=== PATIENT | female | born 1985 | race Hispanic/Latino ===

== ENCOUNTER 2018-10-01 12:34 | Emergency (ER) | payer OTHER ==
[~2018-10-01] VITALS: Ht 167.6 cm; Wt 68.5 kg
[~2018-10-01 12:34] MED LIST: PRENATAL1 EACH MT
--- OUTSIDE RECORDS SUMMARY | 2018-10-01 12:37 | XMS REPORT | CCD ---
Author Author Auto Generated Organization [facility] Address Unknown Phone Unavailable Care Team Providers Care Industrial Green Systems Designer Name Role Phone Juan Flowers CP Allergies, Adverse Reactions, Alerts Substance Reaction Status NKDA Active Medications Medication Instructions Start Date End Date Status Sodium Chloride 0.9% 1,000 mL, Rate: 1,000 ml/hr, Infuse 10/27/2012 10/27/2012 Completed (Bolus) IV 1000 mL over: 1 hr, Route: IV, Dosing Weight 68.182 kg, Total Volume: 1,000, Priority: STAT, Start date: 10/27/12 1:12:00, Duration: 1 doses or times, Stop date: 10/27/12 2:11:00, Bolus Dose Bolus Dose Vital Signs Most recent to oldest [Reference Range]: 1 Height 167.64 cm (10/26/2012 23:25:00) Weight 68.182 kg (10/26/2012 23:25:00) Results URINALYSIS Most recent to oldest [Reference Range]: 1 UA Turbidity [Clear] Clear (10/26/2012 23:30:00) UA Color Ltyellow *NA* (10/26/2012 23:30:00) UA pH [5.0-8.0] 7.0 (10/26/2012 23:30:00) UA Spec Grav [<=1.030] 1.020 (10/26/2012 23:30:00) UA Glucose [Negative mg/dL] Negative mg/dL *NA* (10/26/2012 23:30:00) UA Blood [Negative] Negative (10/26/2012 23:30:00) UA Ketones [Negative mg/dL] Negative mg/dL *NA* (10/26/2012 23:30:00) UA Protein [Negative mg/dL] Negative mg/dL (10/26/2012 23:30:00) UA Urobilinogen [0.1-1.0 mg/dL] <=1.0 mg/dL *NA* (10/26/2012:30:00) UA Bili [Negative] Negative *NA* (10/26/2012:30:00) UA Leuk Est [Negative] Negative (10/26/2012:30:00) UA Nitrite [Negative] Negative (10/26/2012:30:00) UA WBC [0-5 /HPF] 1 /HPF (10/26/2012:30:00) UA RBC [0-2 /HPF] <1 /HPF (10/26/2012:30:00) UA Bacteria [None Seen /HPF] Occasional /HPF *NA* (10/26/2012:30:00) UA Sq Epi [Few /LPF] Occasional /LPF *NA* (10/26/2012:30:00) CHEMISTRY Most recent to oldest [Reference Range]: 1 Sodium Lvl [135-145 mEq/L] 139 mEq/L (10/27/2012:30:00) Potassium Lvl [3.5-5.1 mEq/L] 3.4 mEq/L *LOW* (10/27/2012:30:00) Chloride Lvl [95-109 mEq/L] 104 mEq/L (10/27/2012:30:00) CO2 [24-32 mEq/L] 29 mEq/L (10/27/2012:30:00) AGAP [10.0-20.0 mEq/L] 9.4 mEq/L *LOW* (10/27/2012:30:00) Creatinine Lvl [0.5-1.4 mg/dL] 0.7 mg/dL (10/27/2012:30:00) eGFR 120 mL/min/1.73m2 1 *NA* (10/27/2012:30:00) BUN [7-22 mg/dL] 11 mg/dL (10/27/2012:30:00) B/C Ratio [6-25] 16 (10/27/2012:30:00) Glucose Lvl [70-99 mg/dL] 108 mg/dL 2 *HI* (10/27/2012:30:00) Total Protein [6.4-8.4 g/dL] 8.5 g/dL *HI* (10/27/201230) Albumin Lvl [3.5-5.0 g/dL] 4.5 g/dL (10/27/2012) Globulin [2.0-4.0 g/dL] 4.0 g/dL (10/27/2012) A/G Ratio [0.7-1.6] 1.1 (10/27/2012) Calcium Lvl [8.5-10.5 mg/dL] 9.2 mg/dL (10/27/2012) Magnesium Lvl [1.8-2.4 mg/dL] 2.1 mg/dL (10/27/2012) ALT [0-65 unit/L] 53 unit/L (10/27/2012) AST [0-37 unit/L] 33 unit/L (10/27/2012) Alk Phos [39-136 unit/L] 104 unit/L (10/27/2012:) Bili Total [0.2-1.3 mg/dL] 0.3 mg/dL (10/27/2012) Total CK [12-191 unit/L] 53 unit/L (10/27/2012) CK MB [0.5-3.6 ng/mL] <0.5 ng/mL (10/27/2012) CK MB Index [0.0-2.5] <0.9 (10/27/2012:) Troponin-I [0.00-0.40 ng/mL] <0.02 ng/mL (10/27/2012:) U Preg [Negative] Negative (10/26/2012:30:00) 1Result Comment: The eGFR is calculated using the CKD-EPI formula. In most young, healthy individuals the eGFR will be >90 mL/min/1.73m2. The eGFR declines with age. An eGFR of 60-89 may be normal in some populations, particularly the elderly, for whom the CKD-EPI formula has not been extensively validated. Use of the eGFR is not recommended in the following populations: Individuals with unstable creatinine concentrations, including patients and those with serious co-morbid conditions. Patients with extremes in muscle mass or diet. The data above are obtained from the National Kidney Disease Education Program ( NKDEP) which additionally recommends that when the eGFR is used in patients with extremes of body mass index for purposes of drug dosing, the eGFR should be mul tiplied by the estimated BMI. 2Interpretive Data: Adult reference range values reflect the clinical guidelines of the [place] [employer]. HEMATOLOGY Most recent to oldest [Reference Range]: 1 WBC [3.7-10.4 K/CMM] 7.5 K/CMM (10/27/201230:00) RBC [4.20-5.40 M/CMM] 4.30 M/CMM (10/27/201230:00) Hgb [12.0-16.0 g/dL] 13.1 g/dL (10/27/201230:00) Hct [36.0-48.0 %] 39.5 % (10/27/2012:30:00) MCV [81.0-99.0 fL] 91.9 fL (10/27/201200) MCH [27.0-31.0 pg] 30.4 pg (10/27/201230:00) MCHC [32.0-36.0 g/dL] 33.1 g/dL (10/27/201230:00) RDW [11.5-14.5 %] 14.1 % (10/27/201230:00) Platelet [133-450 K/CMM] 219 K/CMM (10/27/201230:00) MPV [7.4-10.4 fL] 10.5 fL *HI* (10/27/20123000) Segs [45.0-75.0 %] 65.2 % (10/27/2012:30:00) Lymphocytes [20.0-40.0 %] 24.4 % (10/27/201230:00) Monocytes [2.0-12.0 %] 5.9 % (10/27/2012 01:30:00) Eosinophils [0.0-4.0 %] 4.0 % (10/27/2012:30:00) Basophils [0.0-1.0 %] 0.5 % (10/27/2012 01:30:00) Segs-Bands # [1.5-8.1 K/CMM] 4.9 K/CMM (10/27/2012 01:30:00) Lymphocytes # [1.0-5.5 K/CMM] 1.8 K/CMM (10/27/2012 01:30:00) Monocytes # [0.0-0.8 K/CMM] 0.4 K/CMM (10/27/2012 01:30:00) Eosinophils # [0.0-0.5 K/CMM] 0.3 K/CMM (10/27/2012 01:30:00) Basophils # [0.0-0.2 K/CMM] 0.0 K/CMM (10/27/2012 01:30:00)
--- OUTSIDE RECORDS SUMMARY | 2018-10-01 12:37 | XMS REPORT | CCD ---
Author Author Auto Generated Organization [facility] [place] Address Unknown Phone Unavailable Care Team Providers Care Financial Foundations Representative Name Role Phone Janice Schreiber CP Allergies, Adverse Reactions, Alerts Substance Reaction Status NKDA Active
--- OUTSIDE RECORDS SUMMARY | 2018-10-01 12:37 | XMS REPORT | Continuity of Care Document ---
Author Author [facility] Address Unknown Phone Unavailable Problems Problem Status Onset Date Classification Date Reported Comments Source 786.2 - COUGH Active 10/30/2012 [facility] FATIQUE AND WEAKNESS Active 10/26/2012 [facility] SHARP PAIN IN HEAD Active 07/20/2012 [facility] Medications Medication Details Route Status Patient Instructions Ordering Provider Order Date Source Sodium Chloride 0.9% (Bolus) IV 1000 mL 1,000 mL, Rate: 1,000 ml/hr, Infuse over: 1 hr, Route: IV, Dosing Weight 68.182 kg, Total Volume: 1,000, Priority: STAT, Start date: 10/27/12 1:12:00, Duration: 1 doses or times, Stop date: 10/27/12 2:11:00, Bolus DoseBolus Dose IV No Longer Active Popat 10/27/2012 [facility] Ativan 0.5 mg oral tablet 0.5 mg, 1 tab, PO, TID, PRN, 20 tab, Anxiety, Substitution Allowed PO Active [place] 07/21/2012 [facility] Allergies, Adverse Reactions, Alerts Substance Category Reaction Severity Reaction type Status Date Reported Comments Source Immunizations Immunization Date Given Site Status Last Updated Comments Source Results Order Name Results Value Reference Range Date Interpretation Comments Source Breast US Breast US - BREAST US/L ULTRASOUND OF LEFT BREAST: 09/21/2013 CLINICAL: Mastodynia. No prior exams were available for comparison. Color flow and real-time ultrasound of the left breast were performed on the areas of interest. Grewal scale images of the real-time examination were reviewed. No sonographic evidence of abnormality in the lateral left breast, where the patient is reporting pain. IMPRESSION: NEGATIVE There is no sonographic evidence of malignancy. Follow-up with ACR/ACS guidelines. SUMMARY: No sonographic correlate to the area of concern in the left breast. Therefore, management of this symptom should be based on findings at clinical examination. Additional imaging should be considered if symptoms recur or worsen. I discussed these findings with the patient in person at the time of examination. Dipika Arce lpp/:09/21/2013 10:51:54 Nitroglycerin Neutralizer: Judi Berman [facility] This exam was dictated and interpreted by [id number] for Jelly. letter sent: Normal exam Ultrasound BI-RADS: 1 Negative 09/21/2013 - - Read by: Dipika Arce Dictated Date/time: 09/21/13 10:51 Electronically Signed by: Dipika Arce MD 09/21/13 10:51 FINAL REPORT JOSIAH Li Chest 2 views Chest 2 views REASON FOR EXAMINATION: Cough. COMPARISON: None. FINDINGS: Two views of the chest are submitted for interpretation. The cardiomediastinal silhouette is normal. The lungs are clear. The visible osseous structures are normal. IMPRESSION: 1. NO ACUTE CARDIOPULMONARY ABNORMALITIES. 10/30/2012 - - Read by: Hermes Mccullough Dictated Date/time: 10/30/12 12:27 Electronically Signed by: Hermes Mccullough MD 10/30/12 12:27 FINAL REPORT JOSIAH Li CHEMISTRY CK MB Index null 0.0 - 2.5 10/27/2012 Normal [facility] CHEMISTRY Troponin-I null 0.00 - 0.40 10/27/2012 Normal [facility] CHEMISTRY Magnesium Lvl 2.1 mg/dL 1.8 - 2.4 10/27/2012 Normal [facility] CHEMISTRY Sodium Lvl 139 meq/L 135 - 145 10/27/2012 Normal [facility] CHEMISTRY Chloride Lvl 104 meq/L 95 - 109 10/27/2012 Normal [facility] CHEMISTRY Potassium Lvl 3.4 meq/L 3.5 - 5.1 10/27/2012 LOW [facility] CHEMISTRY eGFR 120 mL/min/1.73m2 10/27/2012 NA 1Result Comment: The eGFR is calculated using [...] from the National Kidney Disease Education Program (NKDEP) which additionally recommends that when the eGFR is used in patients with extremes of body mass index for purposes of drug dosing, the eGFR should be multiplied by the estimated BMI. [facility] CHEMISTRY Bili Total 0.3 mg/dL 0.2 - 1.3 10/27/2012 Normal [facility] CHEMISTRY AST 33 unit/L 0 - 37 10/27/2012 Normal [facility] CHEMISTRY Alk Phos 104 unit/L 39 - 136 10/27/2012 Normal [facility] CHEMISTRY ALT 53 unit/L 0 - 65 10/27/2012 Normal [facility] CHEMISTRY A/G Ratio 1.1 0.7 - 1.6 10/27/2012 Normal [facility] CHEMISTRY AGAP 9.4 meq/L 10.0 - 20.0 10/27/2012 LOW [facility] CHEMISTRY Calcium Lvl 9.2 mg/dL 8.5 - 10.5 10/27/2012 Normal [facility] CHEMISTRY CO2 29 meq/L 24 - 32 10/27/2012 Normal [facility] CHEMISTRY Creatinine Lvl 0.7 mg/dL 0.5 - 1.4 10/27/2012 Normal [facility] CHEMISTRY BUN 11 mg/dL 7 - 22 10/27/2012 Normal [facility] CHEMISTRY Glucose Lvl 108 mg/dL 70 - 99 10/27/2012 HI 2Interpretive Data: Adult reference range values reflect the clinical guidelines of the [place] Diabetes [employer]. [facility] CHEMISTRY Globulin 4.0 g/dL 2.0 - 4.0 10/27/2012 Normal [facility] CHEMISTRY Albumin Lvl 4.5 g/dL 3.5 - 5.0 10/27/2012 Normal [facility] CHEMISTRY B/C Ratio 16 6 - 25 10/27/2012 Normal [facility] CHEMISTRY Total Protein 8.5 g/dL 6.4 - 8.4 10/27/2012 HI [facility] CHEMISTRY CK MB null 0.5 - 3.6 10/27/2012 Normal [facility] CHEMISTRY Total CK 53 unit/L 12 - 191 10/27/2012 Normal [facility] HEMATOLOGY Segs 65.2 % 45.0 - 75.0 10/27/2012 Normal [facility] HEMATOLOGY Eosinophils 4.0 % 0.0 - 4.0 10/27/2012 Normal [facility] HEMATOLOGY Basophils 0.5 % 0.0 - 1.0 10/27/2012 Normal [facility] HEMATOLOGY Lymphocytes 24.4 % 20.0 - 40.0 10/27/2012 Normal [facility] HEMATOLOGY Monocytes 5.9 % 2.0 - 12.0 10/27/2012 Normal [facility] HEMATOLOGY Lymphocytes # 1.8 K/CMM 1.0 - 5.5 10/27/2012 Normal [facility] HEMATOLOGY Segs-Bands # 4.9 K/CMM 1.5 - 8.1 10/27/2012 Normal [facility] HEMATOLOGY Monocytes # 0.4 K/CMM 0.0 - 0.8 10/27/2012 Normal [facility] HEMATOLOGY Eosinophils # 0.3 K/CMM 0.0 - 0.5 10/27/2012 Normal [facility] HEMATOLOGY Basophils # 0.0 K/CMM 0.0 - 0.2 10/27/2012 Normal [facility] HEMATOLOGY MPV 10.5 fL 7.4 - 10.4 10/27/2012 HI [facility] HEMATOLOGY Hct 39.5 % 36.0 - 48.0 10/27/2012 Normal [facility] HEMATOLOGY MCV 91.9 fL 81.0 - 99.0 10/27/2012 Normal [facility] HEMATOLOGY MCH 30.4 pg 27.0 - 31.0 10/27/2012 Normal [facility] HEMATOLOGY MCHC 33.1 g/dL 32.0 - 36.0 10/27/2012 Normal [facility] HEMATOLOGY Platelet 219 K/CMM 133 - 450 10/27/2012 Normal [facility] HEMATOLOGY RDW 14.1 % 11.5 - 14.5 10/27/2012 Normal [facility] HEMATOLOGY WBC 7.5 K/CMM 3.7 - 10.4 10/27/2012 Normal [facility] HEMATOLOGY RBC 4.30 M/CMM 4.20 - 5.40 10/27/2012 Normal [facility] HEMATOLOGY Hgb 13.1 g/dL 12.0 - 16.0 10/27/2012 Normal [facility] CHEMISTRY U Preg Negative (10/26/2012 23:30:00) Negative 10/27/2012 Normal [facility] URINALYSIS UA Bili Negative *NA* (10/26/2012 23:30:00) Negative 10/27/2012 [facility] URINALYSIS UA Ketones Negative mg/dL *NA* (10/26/2012 23:30:00) Negative 10/27/2012 [facility] URINALYSIS UA Nitrite Negative (10/26/2012 23:30:00) Negative 10/27/2012 Normal [facility] URINALYSIS UA Blood Negative (10/26/2012 23:30:00) Negative 10/27/2012 Normal [facility] URINALYSIS UA WBC 1 /HPF 0 - 5 10/27/2012 Normal [facility] URINALYSIS UA RBC null 0 - 2 10/27/2012 Normal [facility] URINALYSIS UA Sq Epi Occasional /LPF *NA* (10/26/2012 23:30:00) Few 10/27/2012 NA [facility] URINALYSIS UA Leuk Est Negative (10/26/2012 23:30:00) Negative 10/27/2012 Normal [facility] URINALYSIS UA Bacteria Occasional /HPF *NA* (10/26/2012 23:30:00) None Seen 10/27/2012 NA [facility] URINALYSIS UA Color Ltyellow 10/27/2012 NA [facility] URINALYSIS UA Urobilinogen <=1.0 mg/dL
*NA*
(10/26/2012 23:30:00) <sup> </sup> 0.1 - 1.0 10/27/2012 NA [facility] URINALYSIS UA Spec Grav 1.020 <=1.030 10/27/2012 Normal [facility] URINALYSIS UA pH 7.0 5.0 - 8.0 10/27/2012 Normal [facility] URINALYSIS UA Turbidity Clear (10/26/2012 23:30:00) Clear 10/27/2012 Normal [facility] URINALYSIS UA Glucose Negative mg/dL *NA* (10/26/2012 23:30:00) Negative 10/27/2012 NA [facility] URINALYSIS UA Protein Negative mg/dL (10/26/2012 23:30:00) Negative 10/27/2012 Normal [facility] Vital Signs Vital Sign Value Date Comments Source Weight 68.182 10/27/2012 [facility] Height 167.64 cm 10/27/2012 [facility] Height 167.64 cm 07/21/2012 [facility] Weight 68.182 07/21/2012 [facility] Encounters Location Location Details Encounter Type Encounter Number Reason For Visit Attending Provider ADM Date DC Date Status Source [facility] Emergency [id number] LIN FREDERIC 07/20/2012 07/21/2012 Active [facility] [id number] FATIQUE AND WEAKNESS MANFRED FIOREAT 10/26/2012 10/27/2012 Active [facility] [id number] 786.2 - COUGH REINA JENNIFERVINCENZOCONCHITA 10/30/2012 Active JOSIAH Talaveraa [facility] [place] [facility] [id number] Gurvinder Cote 09/21/2013 09/22/2013 JOS[facility] Li Procedures Procedure Code Date Perfomer Comments Source
--- OUTSIDE RECORDS SUMMARY | 2018-10-01 12:37 | XMS REPORT | CCD ---
Author Author Auto Generated Organization [facility] Address Unknown Phone Unavailable Care Team Providers Care Residential Gas Heat Technician Name Role Phone Praveen Razo CP Allergies, Adverse Reactions, Alerts Substance Reaction Status NKDA Active Medications Medication Instructions Start Date End Date Status Ativan 0.5 mg oral 0.5 mg, 1 tab, PO, TID, PRN, 20 07/21/2012 Ordered tablet tab, Anxiety, Substitution Allowed Vital Signs Most recent to oldest [Reference Range]: 1 Height 167.64 cm (07/20/2012 21:28:00) Weight 68.182 kg (07/20/2012 21:28:00)
[2018-10-01] MEDS ORDERED: DICYCLOMINE HCL 20 MG/2 ML VIAL IM ONE (13:30)
[2018-10-01 14:16] LABS: BASOPHILS % 0.8 % (0.0-1.0); EOSINOPHILS # (AUTO) 0.2 (0.0-0.4); EOSINOPHILS % 3.7 % (0.0-6.0); HEMATOCRIT 37.6 % (34.2-44.1); HEMOGLOBIN 12.7 g/dL (12.0-16.0); LYMPHOCYTES # (AUTO) 1.6 (1.0-3.2); LYMPHOCYTES % 31.2 % (18.0-39.1); MEAN CORPUSCULAR HGB CONC 33.8 g/dL (31-35); MEAN CORPUSCULAR VOLUME 91.7 fL (81-99); MONOCYTES # (AUTO) 0.4 (0.2-0.8); MONOCYTES % 7.2 % (4.4-11.3); NEUTROPHILS # (AUTO) 2.9 (2.1-6.9); NEUTROPHILS % 56.9 % (38.7-80.0); PLATELET COUNT 194 x10e3/uL (140-360)
[2018-10-01 14:31] LABS: ALANINE AMINOTRANSFERASE 23 IU/L (0-55); ALBUMIN 3.9 g/dL (3.5-5.0); ALBUMIN/GLOBULIN RATIO 1.2 (0.8-2.0); ALKALINE PHOSPHATASE 67 IU/L (40-150); AMYLASE 45 U/L (25-125); ANION GAP 10.5 mmol/L (8-16); BLOOD UREA NITROGEN 9 mg/dL (7-26); BUN/CREATININE RATIO 12 (6-25); CALCIUM 9.7 mg/dL (8.4-10.2); CARBON DIOXIDE 26 mmol/L (22-29); CHLORIDE 104 mmol/L (98-107); CREATININE, SERUM 0.74 mg/dL (0.57-1.11); EST GLOMERULAR FILTRATION RATE > 60 ML/MIN (60-); GLUCOSE 83 mg/dL (74-118); LIPASE 20 U/L (8-78); POTASSIUM 3.5 mmol/L (3.5-5.1); SODIUM 137 mmol/L (136-145)
[2018-10-01 15:50] LABS: BILIRUBIN,URINE NEGATIVE (NEGATIVE); CLARITY,URINE CLOUDY (CLEAR); COLOR,URINE YELLOW (YELLOW); KETONES,URINE NEGATIVE (NEGATIVE); LEUKOCYTE ESTERASE ,URINE NEGATIVE (NEGATIVE); NITRITE,URINE NEGATIVE (NEGATIVE); PROTEIN,URINE DIPSTICK NEGATIVE (NEGATIVE); URINE UROBILINOGEN 0.2 mg/dL (0.2 - 1)
[2018-10-01 15:52] LABS: AMORPHOUS SEDIMENT,URINE MANY (FEW); BACTERIA,URINE MODERATE /HPF; EPITHELIAL CELLS,URINE MODERATE /LPF; WBC,URINE (MAN) 0-5 /HPF (0-5)
== END 2018-10-01 17:16 | disposition home or self-care (01) ==
LOC: ER 12:34
DX: R10.11 Right upper quadrant pain (principal); K80.10 Calculus of gallbladder with chronic cholecystitis without obstruction
CPT/HCPCS: 36415; 80053; 81001; 82150; 83690; 84702; 85025; 96372; 99283; J0500